=== PATIENT | female | born 1965 | race African-American/Black ===

== ENCOUNTER 2021-05-12 16:14 | Inpatient (IN) | payer OTHER ==
[2021-05-12 19:25] VITALS: BMI 23.8
[2021-05-12] MEDS ORDERED: MELATONIN 5 MG TABLETS PO SCH (22:00)
[2021-05-12] MEDS ORDERED: MAGNESIUM CITRATE 300 ML BOTTLE PO PRN (22:32)
[2021-05-12] MEDS ORDERED: MAGNESIUM HYDROX 2400MG/30ML ORAL SUSPENSION 30 ML CUP PO PRN (22:32)
[2021-05-12] MEDS ORDERED: ACETAMINOPHEN 325 MG TABLET (FP) PO PRN (22:32)
[2021-05-12] MEDS ORDERED: guaiFENesin 200 MG/10 ML 10 ML UNIT-DOSE CUPS PO PRN (22:32)
[2021-05-12] MEDS ORDERED: P-EPHED 60MG/TRIPROLIDI 2.5MG TABLET PO PRN (22:32)
[2021-05-12] MEDS ORDERED: LOPERAMIDE HCL 2 MG CAPSULE PO PRN (22:32)
[2021-05-12] MEDS ORDERED: MAG HYDROX/AL HYDROX/SIMETH 30 ML UNIT-DOSE CUP PO PRN (22:32)
[2021-05-12] MEDS ORDERED: NICOTINE 10 MG CARTRIDGE (INHALER) IH PRN (22:32)
[2021-05-13] MEDS ORDERED: cloNIDine HCL 0.1 MG TABLET PO ONE (07:24)
[2021-05-13] MEDS: PRENATAL VITAMINS W/ FOLIC ACID TABLET (FP) PO SCH (10:28)
[2021-05-13 11:58] LABS: HEMATOCRIT 42.9 % (32.4-45.2); HEMOGLOBIN 13.5 GM/dL (10.7-15.3); MCH 26.3 pg (25.7-33.7); MCHC 31.5 g/dl (32.0-36.0); MEAN CELL VOLUME 83.6 fl (80-96); MEAN PLT VOLUME 9.3 fl (7.5-11.1); PLATELET COUNT 394 10^3/uL (134-434); RBC 5.14 M/mm3 (3.60-5.2); RDW 14.5 % (11.6-15.6); WHITE BLOOD COUNT 8.7 K/mm3 (4.0-10.0)
[2021-05-13 11:59] LABS: PH,URINE 6.5 (5.0-8.0); URINE APPEARANCE CLEAR; URINE BILIRUBIN NEGATIVE (NEGATIVE); URINE COLOR YELLOW; URINE GLUCOSE (UA) NEGATIVE (NEGATIVE); URINE KETONE NEGATIVE (NEGATIVE); URINE LEUK ESTERASE NEGATIVE (NEGATIVE); URINE NITRITE NEGATIVE (NEGATIVE); URINE PROTEIN NEGATIVE (NEGATIVE); URINE UROBILINOGEN 0.2 mg/dL (0.2-1.0)
[2021-05-13 12:34] LABS: BLOOD UREA NITROGEN 16.6 mg/dL (7-18)
[2021-05-13 12:36] LABS: ALBUMIN 3.7 g/dl (3.4-5.0); CALCIUM 9.5 mg/dL (8.5-10.1)
[2021-05-13 12:39] LABS: BILIRUBIN,TOTAL 0.2 mg/dL (0.2-1); CREATININE 0.7 mg/dL (0.55-1.3); TOT PROT 6.9 g/dl (6.4-8.2)
[2021-05-13] MEDS: IBUPROFEN 400 MG TABLET (FP) PO PRN (16:52)
[2021-05-13] MEDS: THIAMINE HCL 100 MG TABLET (FP) PO SCH (21:17)
[2021-05-13] MEDS: MIRTAZAPINE 15 MG TABLET (FP) PO SCH (21:18)
[2021-05-13] MEDS: SUVOREXANT 10 MG TABLET PO PRN (21:18)
[2021-05-14] MEDS ORDERED: cloNIDine HCL 0.1 MG TABLET PO ONE (06:53)
[2021-05-14] MEDS: IBUPROFEN 400 MG TABLET (FP) PO PRN (09:23)
[2021-05-14] MEDS: PRENATAL VITAMINS W/ FOLIC ACID TABLET (FP) PO SCH (09:24)
[2021-05-14] MEDS: LISINOPRIL 5 MG TABLET PO SCH ×2 (10:34→21:04)
[2021-05-14] MEDS: METHOCARBAMOL 500 MG TABLET PO SCH ×4 (10:34→21:04)
[2021-05-14] MEDS: GABAPENTIN 300 MG CAPSULE PO SCH ×2 (15:36→21:04)
[2021-05-14] MEDS: THIAMINE HCL 100 MG TABLET (FP) PO SCH (21:03)
[2021-05-14] MEDS: MIRTAZAPINE 15 MG TABLET (FP) PO SCH (21:04)
[2021-05-14] MEDS: SUVOREXANT 10 MG TABLET PO PRN (21:05)
[2021-05-15] MEDS: GABAPENTIN 300 MG CAPSULE PO SCH ×3 (06:14→21:23)
[2021-05-15] MEDS: PRENATAL VITAMINS W/ FOLIC ACID TABLET (FP) PO SCH (10:43)
[2021-05-15] MEDS: METHOCARBAMOL 500 MG TABLET PO SCH ×4 (10:43→21:24)
[2021-05-15] MEDS: LISINOPRIL 5 MG TABLET PO SCH ×2 (10:44→21:24)
[2021-05-15] MEDS: MIRTAZAPINE 15 MG TABLET (FP) PO SCH (21:23)
[2021-05-15] MEDS: THIAMINE HCL 100 MG TABLET (FP) PO SCH (21:24)
[2021-05-15] MEDS ORDERED: METOPROLOL TARTRATE 25 MG TABLET (FP) PO ONE (21:58)
[2021-05-15] MEDS: SUVOREXANT 10 MG TABLET PO PRN (22:11)
[2021-05-16] MEDS: GABAPENTIN 300 MG CAPSULE PO SCH ×2 (06:25→14:10)
[2021-05-16] MEDS ORDERED: cloNIDine HCL 0.1 MG TABLET PO ONE (06:43)
[2021-05-16] MEDS: PRENATAL VITAMINS W/ FOLIC ACID TABLET (FP) PO SCH (10:23)
[2021-05-16] MEDS: METHOCARBAMOL 500 MG TABLET PO SCH ×4 (10:23→21:09)
[2021-05-16] MEDS: LISINOPRIL 5 MG TABLET PO SCH ×2 (10:23→21:09)
[2021-05-16] MEDS: MIRTAZAPINE 15 MG TABLET (FP) PO SCH (21:09)
[2021-05-16] MEDS: THIAMINE HCL 100 MG TABLET (FP) PO SCH (21:09)
[2021-05-16] MEDS: SUVOREXANT 15 MG TABLET PO PRN (21:11)
[2021-05-16] MEDS: clonazePAM 0.5 MG ODT TABLETS SL SCH (21:11)
[2021-05-17] MEDS: cloNIDine HCL 0.1 MG TABLET PO PRN (05:58)
[2021-05-17] MEDS: IBUPROFEN 400 MG TABLET (FP) PO PRN (07:01)
[2021-05-17] MEDS: clonazePAM 0.5 MG ODT TABLETS SL SCH ×2 (09:41→21:03)
[2021-05-17] MEDS: METHOCARBAMOL 500 MG TABLET PO SCH ×4 (09:41→21:05)
[2021-05-17] MEDS: PRENATAL VITAMINS W/ FOLIC ACID TABLET (FP) PO SCH (09:41)
[2021-05-17] MEDS: LISINOPRIL 5 MG TABLET PO SCH ×2 (09:42→21:04)
[2021-05-17] MEDS: SUVOREXANT 15 MG TABLET PO PRN (21:04)
[2021-05-17] MEDS: MIRTAZAPINE 15 MG TABLET (FP) PO SCH (21:04)
[2021-05-17] MEDS: THIAMINE HCL 100 MG TABLET (FP) PO SCH (21:04)
[2021-05-18] MEDS: cloNIDine HCL 0.1 MG TABLET PO PRN ×2 (06:01→14:19)
[2021-05-18] MEDS: IBUPROFEN 400 MG TABLET (FP) PO PRN (06:01)
[2021-05-18] MEDS: LISINOPRIL 5 MG TABLET PO SCH ×2 (09:53→21:13)
[2021-05-18] MEDS: PRENATAL VITAMINS W/ FOLIC ACID TABLET (FP) PO SCH (09:53)
[2021-05-18] MEDS: METHOCARBAMOL 500 MG TABLET PO SCH ×4 (09:53→21:13)
[2021-05-18] MEDS: clonazePAM 0.5 MG ODT TABLETS SL SCH ×2 (09:53→21:12)
[2021-05-18] MEDS: hydrOXYzine PAMOATE 25 MG CAPSULE (FP) PO PRN (14:11)
[2021-05-18] MEDS: SUVOREXANT 15 MG TABLET PO PRN (21:11)
[2021-05-18] MEDS: MIRTAZAPINE 15 MG TABLET (FP) PO SCH (21:12)
[2021-05-18] MEDS: THIAMINE HCL 100 MG TABLET (FP) PO SCH (21:13)
[2021-05-19] MEDS: IBUPROFEN 400 MG TABLET (FP) PO PRN (05:59)
[2021-05-19] MEDS ORDERED: COLLOIDAL OATMEAL 1 BAR EACH TP PRN (09:38)
[2021-05-19] MEDS: LISINOPRIL 5 MG TABLET PO SCH ×2 (09:59→21:56)
[2021-05-19] MEDS: clonazePAM 0.5 MG ODT TABLETS SL SCH ×2 (09:59→21:56)
[2021-05-19] MEDS: METHOCARBAMOL 500 MG TABLET PO SCH ×4 (09:59→21:56)
[2021-05-19] MEDS: PRENATAL VITAMINS W/ FOLIC ACID TABLET (FP) PO SCH (09:59)
[2021-05-19] MEDS: MIRTAZAPINE 15 MG TABLET (FP) PO SCH (21:56)
[2021-05-19] MEDS: SUVOREXANT 15 MG TABLET PO PRN (21:56)
[2021-05-19] MEDS: THIAMINE HCL 100 MG TABLET (FP) PO SCH (21:56)
[2021-05-19] MEDS: cloNIDine HCL 0.1 MG TABLET PO PRN (22:36)
[2021-05-20] MEDS: cloNIDine HCL 0.1 MG TABLET PO PRN ×2 (06:40→21:40)
[2021-05-20] MEDS: LISINOPRIL 5 MG TABLET PO SCH ×2 (10:38→21:40)
[2021-05-20] MEDS: PRENATAL VITAMINS W/ FOLIC ACID TABLET (FP) PO SCH (10:38)
[2021-05-20] MEDS: clonazePAM 0.5 MG ODT TABLETS SL SCH ×2 (10:38→21:40)
[2021-05-20] MEDS: METHOCARBAMOL 500 MG TABLET PO SCH ×4 (10:38→21:40)
[2021-05-20] MEDS: IBUPROFEN 400 MG TABLET (FP) PO PRN (16:48)
[2021-05-20] MEDS: MIRTAZAPINE 15 MG TABLET (FP) PO SCH (21:40)
[2021-05-20] MEDS: THIAMINE HCL 100 MG TABLET (FP) PO SCH (21:40)
[2021-05-21 06:06] LABS: SARS-CoV-2 NAA Not Detected (Not Detected)
[2021-05-21] MEDS: PRENATAL VITAMINS W/ FOLIC ACID TABLET (FP) PO SCH (09:08)
[2021-05-21] MEDS: clonazePAM 0.5 MG ODT TABLETS SL SCH ×2 (09:08→21:09)
[2021-05-21] MEDS: METHOCARBAMOL 500 MG TABLET PO SCH ×4 (09:09→21:09)
[2021-05-21] MEDS: LISINOPRIL 5 MG TABLET PO SCH ×2 (09:09→21:09)
[2021-05-21] MEDS ORDERED: ALBUTEROL SO4 HFA INHALER IH ONE (11:26)
[2021-05-21] MEDS ORDERED: ALBUTEROL SO4 HFA INHALER IH PRN (12:13)
[2021-05-21] MEDS: THIAMINE HCL 100 MG TABLET (FP) PO SCH (21:09)
[2021-05-21] MEDS: MIRTAZAPINE 15 MG TABLET (FP) PO SCH (21:09)
[2021-05-22] MEDS: PRENATAL VITAMINS W/ FOLIC ACID TABLET (FP) PO SCH (09:51)
[2021-05-22] MEDS: clonazePAM 0.5 MG ODT TABLETS SL SCH ×2 (09:51→21:13)
[2021-05-22] MEDS: METHOCARBAMOL 500 MG TABLET PO SCH ×4 (09:51→21:12)
[2021-05-22] MEDS: LISINOPRIL 5 MG TABLET PO SCH ×2 (09:51→21:13)
[2021-05-22] MEDS: hydrOXYzine PAMOATE 25 MG CAPSULE (FP) PO PRN (13:57)
[2021-05-22] MEDS: MIRTAZAPINE 15 MG TABLET (FP) PO SCH (21:12)
[2021-05-22] MEDS: THIAMINE HCL 100 MG TABLET (FP) PO SCH (21:13)
[2021-05-23 07:11] VITALS: TEMP 98.1
[2021-05-23] MEDS: PRENATAL VITAMINS W/ FOLIC ACID TABLET (FP) PO SCH (09:39)
[2021-05-23] MEDS: clonazePAM 0.5 MG ODT TABLETS SL SCH (09:39)
[2021-05-23] MEDS: LISINOPRIL 5 MG TABLET PO SCH (09:39)
[2021-05-23] MEDS: METHOCARBAMOL 500 MG TABLET PO SCH (09:39)
[2021-05-23 10:33] VITALS: BP 148/82; PULSE 100
== END 2021-05-23 10:15 | disposition home or self-care (01) | DRG 772 ==
LOC: YASAS 16:14 → Y5N 05-13 02:19 → Y3W 05-13 02:34
PROVIDERS: ADMIT Allergy & Immunology; ATTEND Allergy & Immunology
PROC: HZ42ZZZ Group Counseling for Substance Abuse Treatment, Cognitive-Behavioral (ICD-10-PCS; principal; 2021-05-13)
DX: F14.20 Cocaine dependence, uncomplicated (principal); F12.20 Cannabis dependence, uncomplicated; F19.280 Other psychoactive substance dependence with psychoactive substance-induced anxiety disorder; F19.282 Other psychoactive substance dependence with psychoactive substance-induced sleep disorder; F20.9 Schizophrenia, unspecified; F41.9 Anxiety disorder, unspecified; I10 Essential (primary) hypertension; M54.89 Other dorsalgia; Z20.822 Contact with and (suspected) exposure to COVID-19; Z86.59 Personal history of other mental and behavioral disorders
CPT/HCPCS: 36415; 80053; 81003; 85027; 86780; C9803; J0735; U0003; U0005